=== PATIENT | female | born 1970 | race Caucasian/White ===

== ENCOUNTER 2022-07-14 10:04 | Observation (INO) | payer OTHER, BC ==
[2022-07-14] MEDS ORDERED: Bacitracin Zinc Ointment 30 gm TUBE ONE (11:05)
[2022-07-14] MEDS ORDERED: Bupivacaine PF 0.5% 30 ML VIAL ONE (11:05)
[2022-07-14] MEDS ORDERED: Neomycin-Polymyxin 1 ML AMP ONE (11:05)
[2022-07-14 11:14] LABS: #Basophils 0.1 thou/uL (0.0-0.2); #Eosinphils 0.1 thou/uL (0.0-0.7); #Monocytes 0.4 thou/uL (0.11-0.59); #Neutrophils 3.5 thou/uL (1.40-6.50); %Basophils 1.2 % (0.0-1.0); %Eosinophils 2.5 % (0.0-10.0); %Lymphocytes 32.5 % (21.0-51.0); %Monocytes 6.3 % (0.0-10.0); %Neutrophils 57.6 % (42.0-75.0); Hemoglobin 14.9 g/dL (12.0-16.0); Mean Corpuscular HGB CONC 33.9 g/dL (32.0-36.0); Mean Corpuscular Volume 91.5 fl (78.0-98.0); Mean Platelet Volume 6.6 fL (7.4-10.4); Platelet Count 287 10x3/uL (130-400); RBC Distribution Width 11.4 % (11.5-14.5)
[2022-07-14] MEDS ORDERED: Sodium Chloride 0.9% 100 ML ONE (11:25)
[2022-07-14] MEDS ORDERED: CEFAZOLIN 2 GM VIAL ONE (11:25)
[2022-07-14] MEDS ORDERED: Dexmedetomidine 200 MCG/2 ML VIAL ONE (11:26)
[2022-07-14] MEDS ORDERED: Midazolam HCl 2 mg/2 ml Vial ONE (11:26)
[2022-07-14] MEDS ORDERED: Fentanyl 250 MCG/5 ML VIAL ONE ×2 (11:26→12:29)
[2022-07-14] MEDS ORDERED: Ondansetron PF 4 MG/2 ML Vial ONE (11:38)
[2022-07-14] MEDS ORDERED: PROPOFOL 200 MG/20 ML VIAL ONE (11:38)
[2022-07-14] MEDS ORDERED: Dexamethasone 20 MG/5 ML VIAL ONE (11:38)
[2022-07-14] MEDS ORDERED: Lidocaine 1% PF 5 ML VIAL ONE (11:38)
[2022-07-14] MEDS ORDERED: Fentanyl 100 MCG/2 ML VIAL SLOW IVP PRN (12:28)
[2022-07-14] MEDS ORDERED: Morphine 4 MG/ML VIAL SLOW IVP PRN (12:28)
[2022-07-14] MEDS ORDERED: HYDROcodone/Acetaminophen 5/325 mg Tablet PO PRN (12:28)
[2022-07-14] MEDS ORDERED: Acetaminophen 325 MG TAB PO PRN (12:28)
[2022-07-14] MEDS ORDERED: Promethazine HCl 25 MG/ML VIAL IM PRN (12:28)
[2022-07-14] MEDS ORDERED: TETANUS, DIPHTHERIA TOX,ADULT (TDVAX) 0.5 ML VIAL IM ONE (12:28)
[2022-07-14] MEDS ORDERED: Ondansetron PF 4 MG/2 ML Vial SLOW IVP PRN (12:28)
[2022-07-14] MEDS ORDERED: traMADol HCl 50 MG TAB PO PRN (12:28)
[2022-07-14] MEDS ORDERED: Vancomycin 1 GM/200 ML (FROZEN) BAG ONE (12:50)
[2022-07-14] MEDS ORDERED: Ketorolac Tromethamine 30 MG/ML VIAL ONE (13:17)
[2022-07-14 13:39] LABS: ALT (SGPT) 9 U/L (8-55); AST (SGOT) 13 U/L (5-34); Albumin 3.7 g/dL (3.5-5.0); Alkaline Phosphatase 56 U/L (40-110); Anion Gap 13 mmol/L (10-20); BUN (Urea Nitrogen) 14 mg/dL (7.0-18.7); Bilirubin, Total 0.9 mg/dL (0.2-1.2); Calc. Creatinine Clearance 0 mL/min (70-130); Calcium 8.9 mg/dL (7.8-10.44); Carbon Dioxide 20 mmol/L (22-29); Chloride 107 mmol/L (98-107); Estimated GFR 105; Globulin 2.7 g/dL (2.4-3.5); Glucose 97 mg/dL (70-105); Potassium 4.1 mmol/L (3.5-5.1); Protein, Total 6.4 g/dL (6.0-8.3); Sodium 136 mmol/L (136-145)
[2022-07-14 13:44] VITALS: BMI 27.3
[2022-07-14] MEDS ORDERED: FLU VACC QS2022-23(6MOS UP)/PF 60 MCG/0.5 ML SYRINGE IM ONE (15:45)
[2022-07-14 15:46] LABS: SARS-CoV-2 NAA Rapid Test DETECTED (NotDetected)
[2022-07-14] MEDS: Ketorolac Tromethamine 30 MG/ML VIAL IVP SCH (17:04)
[2022-07-14] MEDS: Aspirin 81 mg Enteric Coated Tablet PO SCH (20:24)
[2022-07-14] MEDS: Ampicillin/Sulbactam 1.5 GM in Sodium Chloride 0.9% 100 ML IVPB SCH (20:24)
[2022-07-15] MEDS: Ketorolac Tromethamine 30 MG/ML VIAL IVP SCH ×2 (00:13→05:51)
[2022-07-15] MEDS ORDERED: Vancomycin 1 GM in Premix Bag 1 BAG IVPB SCH (01:00)
[2022-07-15 07:52] VITALS: BP 125/84; TEMP 98
[2022-07-15] MEDS: Aspirin 81 mg Enteric Coated Tablet PO SCH (09:07)
[2022-07-15] MEDS: Ampicillin/Sulbactam 1.5 GM in Sodium Chloride 0.9% 100 ML IVPB SCH (09:07)
== END 2022-07-15 10:19 | disposition home or self-care (01) ==
LOC: SDC 10:04 → SURG A 15:29
PROVIDERS: ADMIT Orthopaedic Surgery Hand Surgery; ATTEND Orthopaedic Surgery Hand Surgery
PROC: 0R9W0ZZ Drainage of Right Finger Phalangeal Joint, Open Approach (ICD-10-PCS; principal; 2022-07-14)
DX: M00.9 Pyogenic arthritis, unspecified (principal); U07.1 COVID-19; W54.0XXA Bitten by dog, initial encounter
CPT/HCPCS: 36415; 80053; 85025; 85652; 87070; 87205; 96374; 96375; 96376; G0378; J0295; J1100; J1885; J2250; J2270; J2405; J2704; J3010; J3370-JW; J3490; S0020; U0002

== ENCOUNTER 2023-03-28 09:47 | Outpatient (CLI) | payer BC ==
[~2023-03-28 09:47] MED LIST: Magnevist 469MG/ML 20 ML VIAL ONE
== END 2023-03-28 09:48 | disposition home or self-care (01) ==
LOC: BICMRI 09:47
PROVIDERS: ATTEND Surgery
DX: S09.90XA Unspecified injury of head, initial encounter (principal)
CPT/HCPCS: 70553

== ENCOUNTER 2023-05-22 12:43 | Emergency (ER) | payer BC ==
[2023-05-22 14:13] LABS: #Monocytes 0.2 thou/uL (0.11-0.59); #Neutrophils 2.4 thou/uL (1.40-6.50); %Basophils 0.6 % (0.0-1.0); %Eosinophils 0.8 % (0.0-10.0); %Lymphocytes 44.7 % (21.0-51.0); %Monocytes 4.2 % (0.0-10.0); %Neutrophils 49.5 % (42.0-75.0); Hematocrit 38.1 % (36.0-47.0); Hemoglobin 13.2 g/dL (12.0-16.0); Mean Corpuscular HGB CONC 34.6 g/dL (32.0-36.0); Mean Corpuscular Hemoglobin 31.1 pg (27.0-31.0); Mean Corpuscular Volume 89.9 fl (78.0-98.0); Mean Platelet Volume 8.5 fL (7.4-10.4); Platelet Count 255 10x3/uL (130-400); RBC Distribution Width 13.6 % (11.5-14.5); Red Blood Cell (RBC) Count 4.24 mill/uL (4.20-5.40); White Blood Cell (WBC) Count 4.8 10x3/uL (4.8-10.8)
[2023-05-22 14:37] LABS: Bilirubin Negative (Negative); Blood, Urine Negative (Negative); CAUTI Indications for Culture Dysuria,urgency,freq; Clarity Turbid (Clear); Glucose, Urine (Dipstick) Normal (Negative); Ketone, Urine Negative (Negative); Leukocyte Negative Leu/uL (Negative); Nitrite Negative (Negative); Protein, Urine (Dipstick) Negative (Neg-Trace); RBC/HPF 0-3 HPF (0-3); Specific Gravity, Urine 1.013 (1.002-1.036); Squamous Epithelial 0-3 HPF (0-3); Urobilinogen Normal mg/dL (Less than 2); WBC/HPF 0-3 HPF (0-3); pH, Urine 6.5 (5.0-9.0)
[2023-05-22 14:40] LABS: Amphetamine Not Detected (NotDetected); Bacteria/HPF 1+ HPF (None Seen); Barbiturates Screen Not Detected (NotDetected); Benzodiazepine Screen Not Detected (NotDetected); Cocaine Metabolite Screen Not Detected (NotDetected); Methadone Not Detected (NotDetected); Methamphetamine Not Detected (NotDetected); Opiate Screen Not Detected (NotDetected); Oxycodone Screen Not Detected (NotDetected); Phencyclidine (PCP) Not Detected (NotDetected); THC/Cannabinoid Screen Not Detected (NotDetected); Tricyclic Screen Not Detected (NotDetected)
[2023-05-22 14:41] LABS: Urine Culture Reflex No No
[2023-05-22 14:42] LABS: ALT (SGPT) 14 U/L (8-55); AST (SGOT) 18 U/L (5-34); Albumin 4.3 g/dL (3.5-5.0); Alkaline Phosphatase 67 U/L (40-110); Anion Gap 16 mmol/L (10-20); BUN (Urea Nitrogen) 15 mg/dL (9.8-20.1); Bilirubin, Total 0.3 mg/dL (0.2-1.2); Calc. Creatinine Clearance 0 mL/min (70-130); Calcium 8.5 mg/dL (7.8-10.44); Carbon Dioxide 24 mmol/L (22-29); Chloride 108 mmol/L (98-107); Estimated GFR 103; Globulin 2.7 g/dL (2.4-3.5); Glucose 101 mg/dL (70-105); Potassium 3.8 mmol/L (3.5-5.1); Sodium 144 mmol/L (136-145)
[2023-05-22 14:43] LABS: Acetaminophen Less than 10 mcg/mL (10.0-30.0); Alcohol 314.6 mg/dL (Less than 10); Salicylate Less than 8.0 mg/dL (15.0-30.0)
[2023-05-23 02:15] LABS: Acetaminophen Less than 10 mcg/mL (10.0-30.0); Alcohol 74.7 mg/dL (Less than 10); Salicylate Less than 8.0 mg/dL (15.0-30.0)
[2023-05-23] MEDS ORDERED: Ondansetron PF 4 MG/2 ML Vial ONE (03:10)
[2023-05-23] MEDS ORDERED: hydrOXYzine 25 MG TAB ONE (10:28)
[2023-05-23] MEDS ORDERED: hydrOXYzine Pamoate 25 mg Capsule ONE (10:33)
== END 2023-05-23 10:58 ==
LOC: ERS 12:43
DX: R45.851 Suicidal ideations (principal)
CPT/HCPCS: 36415; 36416; 80053; 80306; 80307; 81001; 84443; 85025; 93005; 96374; J2405; Q0177